=== PATIENT | male | born 1965 | race Caucasian/White ===

== ENCOUNTER 2017-11-29 15:00 | Outpatient (RCR) | payer OTHER, SELFPAY ==
--- NOTE | 2017-09-14 15:25 | HP.PTEVAL ---
Patient's Visit Information DANILO IVERSON III is a 52 year old M referred to Physical Therapy by DUSTIN BELL with a diagnosis of SPONDYLOSIS LUMBAR. Date of Evaluation: 09/14/17 Physical Therapist: Reed Toribio PT, - Visit Plan Frequency: 2x /Week Duration: 4 Weeks Plan: AQUATIC PT FOR LUMBAR ROM/STRENGTHENING,POSTURE,FLEXABILITY,DLS - Subjective Subjective: This 52 y/o male presensts to physical therapy lumbar pain with radicular symptoms. Patient has had lumbar pain many years left leg greater left. Location bottuck -hams -feet sharp pain. Symptoms worse with bending,lifting,sitting,walking ,standing. Pain affectsd quality of live. Symptoms better with heat. Coughing/snneezing -.Bowel/bladder -. Patient has seen pain management . Patient had MRI prutruding disc,exctrustion/stenosis. Patient also had nerve conduction showed neuropathy. C/O parathesia/tingling feet/legs.Patient has had PT -Aquatic s in past. SOCIAL: single. VOCATION: partially disablity - Pain Bilateral Back Pain Intensity (Out of 10): 7 Pain Intensity Range: 10 Bilateral Lower Extremity Pain Intensity (Out of 10): 5 Pain Intensity Range: 10 - Objective POSTURE: mild foward posture ,guarded. PALPATION: tender L-S ,paraspinals erector. GAIT: mild fowrd posture antalgic ,guarded. NEURO: c/o parathesia/tingling feet,light touch intact ,reflexes L3-4,L4-5,L5-S1 1/3. FLEXABILITY: hams mod tight,piriformis mod tight. LUMBAR ROM: flexion mod severe ,extension severe,side glides mod loss. MMT: quads/hams/hip 3+/5 ankle 4-/5. DIMINISHED HEEL/TOE WALKING - Special Tests L/S Slump test left side: Positive L/S Slump test right side: Positive L/S Left Straight Leg Raise: Positive L/S Right Straight Leg Raise: Positive Lumbar Standing: Flexion - Mechanical Response: No effect Lumbar Standing: Flexion - Symptoms During Testing: Increases Lumbar Standing: Flexion - Symptoms After Testing: Worse Lumbar Standing: Extension - Mechanical Response: No effect Lumbar Standing: Extension - Symptoms During Testing: Increases Lumbar Standing: Extension - Symptoms After Testing: Worse Lumbar Standing: Right Side Glides - Mechanical Response: No effect Lumbar Standing: Right Side [place] - Symptoms During Testing: Increases Lumbar Standing: Right Side [place] - Symptoms After Testing: Worse Lumbar Standing: Left Side [place] - Mechanical Response: No effect Lumbar Standing: Left Side [place] - Symptoms During Testing: Increases Lumbar Standing: Left Side [place] - Symptoms After Testing: Worse - Goals Goal 1:: Independant Aqutaics PT Goal Time Frame: 4-6 Weeks Goal 2:: Decrease lumbar pain and radicular symptoms by 50% to improve with standing and walking Goal Time Frame: 4-6 Weeks Goal 3:: Improve lumbar ROM mod loss for function of recovery Goal Time Frame: 4-6 Weeks Goal 4:: Patient increase strength 4-/5 BLE to improve function with walking standing Goal Time Frame: 4-6 Weeks Goal 5:: Patient inprove ADL's with standing walking with min/mod limiations Goal Time Frame: 4-6 Weeks - Rehabilitation Potential Physical Therapy Diagnosis: This patient has multiple comlpexity with lumbar pain with with radicular symptoms with extrusion /stenosis with poor lumbar ROM pain ,strength impairs function and ADLS' Rehabilitation Potential: Good - Anticipated Interventions Patient/Client Instruction: Educate patient on: Condition, Plan of Care For the Purpose of:: To decrease pain, To increase ROM, To improve muscle performance and motor function, To improve ability to perform ADL's, To increase tolerance to activity/condition/position, To improve ability of physical actions for home/community/work/leisure, To improve gait and locomotor functions, To improve health of tissue, To decrease soft tissue restriction, To increase flexibility/ROM, To improve safety with gait, To improve ability to perform tasks related to life management Therapeutic Exercise to Include: Strength training, Body mechanics, Postural training, Flexibilty training, In an aquatic setting, Dynamic Lumbar Stabilization For the Purpose of:: To decrease pain, To improve muscle performance and motor function, To improve ability to perform ADL's, To increase tolerance to activity/condition/position, To improve ability of physical actions for home/community/work/leisure, To improve health of tissue, To decrease soft tissue restriction, To improve health and function, To foster healthy habits, To improve ability to perform tasks related to life management Thank you for the opportunity to evaluate your patient. For Medicare and Medicare HMO plans, please review the plan of care and approve it. It will need to be FAXED BACK to us at [phone] for Medicare purposes. Please let me know if there are questions or concerns regarding this plan of care. Physician Signature: Date:
--- NOTE | 2018-04-18 11:27 | HP.PTDCNRP_ITS ---
HP - Discharge Summary (1) - Patient Information DANILO IVERSON III was seen in my office for initial evaluation on 09/14/17. The following Plan of Care was established for this patient: Initial Frequency: 2x /Week Initial Duration: 4 Weeks - Anticipated Interventions Patient/Client Instruction: Educate patient on: Condition, Plan of Care For the Purpose of:: To decrease pain, To increase ROM, To improve muscle performance and motor function, To improve ability to perform ADL's, To increase tolerance to activity/condition/position, To improve ability of physical actions for home/community/work/leisure, To improve gait and locomotor functions, To improve health of tissue, To decrease soft tissue restriction, To increase flexibility/ROM, To improve safety with gait, To improve ability to perform tasks related to life management Therapeutic Exercise to Include: Strength training, Body mechanics, Postural training, Flexibilty training, In an aquatic setting, Dynamic Lumbar Stabilization For the Purpose of:: To decrease pain, To improve muscle performance and motor function, To improve ability to perform ADL's, To increase tolerance to activity /condition/position, To improve ability of physical actions for home/community/ work/leisure, To improve health of tissue, To decrease soft tissue restriction, To improve health and function, To foster healthy habits, To improve ability to perform tasks related to life management This patient was last seen in our office 11/29/17. Pertinent comments regarding their Physical therapy will appear below: This patient seen for lumbar pain for Aquatic PT for DLS,postural ex's ,LE flexablity,strengthening to improve function. At this point I will be discontinuing this patient from physical therapy. I would be happy to see this patient again in the future if found appropriate by the physician. Thank you! Reed Toribio, PT,
== END 2017-11-29 19:00 | disposition home or self-care (01) ==
LOC: PT 15:00
DX: M47.896 Other spondylosis, lumbar region (principal); M79.671 Pain in right foot
CPT/HCPCS: 97113; 97162; G8978; G8979

== ENCOUNTER 2022-11-16 14:30 | Outpatient (RCR) | payer OTHER, SELFPAY ==
--- NOTE | 2022-08-30 15:00 | HP.PTEVAL_ITS ---
Patient's Visit Information DANILO IVERSON III is a 57 year old M referred to Physical Therapy by DUSTIN GARCIA with a diagnosis of Lumbar Radiculopathy. Date of Evaluation: 08/30/22 Physical Therapist: Millie Fulton DPT - Visit Plan Frequency: 2x /Week Duration: 4 Weeks Plan: Aquatic Therapy: Focus on LE and core strength/stabilization- pain mgmt- Gentle - Subjective Patient reports that he has had issues for years- [facility]. He went for quite a while with cortisone epidurals. COVID happened and the [facility] stopped doing things. He is having a lot of issues and is now getting back into PT and Epidurals. If he sits for any longer than 5 minutes and he has both legs are numb. Once he stand the feeling can come back. He has peripheral neuropathy bilateral and sciatic nerve issues on both sides. Started tripping about 3 months ago with right sided foot drop. He has fallen several times- last one was 2 weeks ago- uses a cane intermittently. He had an injection yesterday- he has not seen any effect but is waiting sometimes they take time. Pain is along both sides of the back- feels like someone is grabbing and squeezing it Left >Right. Pain radiates down both legs Does travel into the left buttock. They are making him bilateral AFOs- he has had surgery on both. He has been through therapy before chiropractic and land- but this is his first aquatic experience. Good days and bad days. Worst: 06/03 Agg: sitting and moving the wrong way, sleeping the wrong way, anything Eases: sleep. Best: 12/01 Sleep: no difficulty due to meds- when he gets up in the AM he will lay on his back and slowly stretch and has lots of pops. He lays down 6-7x a day and does some Mar exercises. He had an MRI on his back in the last two months. L4- L5 compression fracture- so surgery is not on the table. He needs to call when he needs another injection. Weakness in both legs. No loss or change in bowel or bladder. Work: PMHx: bilateral foot surgery as a child, HTN Meds: atenolol, antiprolol, bupropion, declosomax, Celebrex, psuchlobrenzopene, pregablin. - Objective Posture: poor- FH, RS is able to improve but is unable to get to full upright posture due to pain. Gait: antalgic- decreased stance on the right LE- wide JAIDA and catches his right toe. HR/TR: able with diminished ROM by 75%- can perform seated. SLS: weight shift but is unable to SLS. Palpation: tender to touch along entire paraspinals of the lumbar spine and gluts. ROM: Lumbar: Flexion: decreased by 80%, SB: dec by 50%, Rot: decreased by 50% Extn: neutral, Hip/Knee/Ankle: WNL. Strength: Core: poor, Hip: 3+/5 throughout, Knee: 4+/5, Ankle: 2+/5. Flex: HS: severe, Gastroc: severe - Special Tests L/S Slump test left side: Positive L/S Slump test right side: Positive L/S Left Straight Leg Raise: Positive L/S Right Straight Leg Raise: Positive - Balance/Special Test Scores Oswestry Low Back Score: 23 - Goals Goal 1:: Patient will be I with HEP and progression Goal Time Frame: 4-6 Weeks Goal 2:: Patient will maintain proper posture t/o tx session to demo increased core s/s Goal Time Frame: 4-6 Weeks Goal 3:: Patient will report no trips/falls for 1 week Goal Time Frame: 4-6 Weeks Goal 4:: Patient will report 80% improvement Goal Time Frame: 4-6 Weeks - Rehabilitation Potential Physical Therapy Diagnosis: Patient presents with hypomobility- he has decreased LE and core strength/stabilization, flex, proprioception. and muscular endurance leading to poor balance and decreased ability to perform ADL's. Rehabilitation Potential: Fair - Anticipated Interventions Patient/Client Instruction: Educate patient on: Benefits of Fitness Program Therapeutic Exercise to Include: Strength training, Endurance training, Balance training, Coordination, Agility training, Body mechanics, Postural training, Flexibilty training, Gait and locomotor training, Neuromotor development, In an aquatic setting, Dynamic Lumbar Stabilization, Scapular Strength/Stabilization For the Purpose of:: To improve muscle performance and motor function Thank you for the opportunity to evaluate your patient. For Medicare and Medicare HMO plans, please review the plan of care and approve it. It will need to be FAXED BACK to us at [phone] for Medicare purposes. For Medicare only, by signing this I certify the plan of care. Please let me know if there are questions or concerns regarding this plan of care. Physician Signature: Date:
--- NOTE | 2022-12-18 08:21 | HP.PT.NRP ---
DANILO IVERSON III was seen in my office for initial evaluation on 08/30/22. The following Plan of Care was established for this patient: Initial Frequency: 2x /Week Initial Duration: 4 Weeks Patient/Client Instruction: Educate patient on: Benefits of Fitness Program Therapeutic Exercise to Include: Strength training, Endurance training, Balance training, Coordination, Agility training, Body mechanics, Postural training, Flexibilty training, Gait and locomotor training, Neuromotor development, In an aquatic setting, Dynamic Lumbar Stabilization, Scapular Strength/Stabilization For the Purpose of:: To improve muscle performance and motor function This patient was last seen in our office . Pertinent comments regarding their Physical therapy will appear below: Patient has not attended PT in over 30 days- appropriate to be d/c from PT and return to MD as appropriate At this point I will be discontinuing this patient from physical therapy. I would be happy to see this patient again in the future if found appropriate by the physician. Thank you! Millie Fulton, SANTANAT Balance/Gait/Functional tests - Balance/Special Test Scores Oswestry Low Back Score: 23
== END 2022-11-16 19:00 | disposition home or self-care (01) ==
LOC: PT 14:30
DX: M54.9 Dorsalgia, unspecified (principal); M47.26 Other spondylosis with radiculopathy, lumbar region
CPT/HCPCS: 97113; 97162